=== PATIENT | male | born 1965 | race Caucasian/White ===

== ENCOUNTER 2019-03-04 05:37 | Outpatient (CLI) | payer OTHER ==
[~2019-03-04] VITALS: Ht 187.9 cm; Wt 95.4 kg
[2019-03-04] MEDS ORDERED: PANT40TA3 PO (13:32)
[2019-03-04] MEDS ORDERED: DESV100T PO (13:32)
[2019-03-04] MEDS ORDERED: LORA0.5T PO (13:32)
== END 2019-03-05 09:19 | disposition home or self-care (01) ==
LOC: PREOP 05:37
PROVIDERS: ATTEND Surgery
DX: Z01.818 Encounter for other preprocedural examination (principal)

== ENCOUNTER → 2019-03-09 | Outpatient (CLI) | payer OTHER ==
[~2019-03-09] MED LIST: CATHETER FLUSH 10 ML SYR IV PRN; DESV100T PO; LORA0.5T PO; PANT40TA3 PO
--- NOTE | 2019-03-09 14:14 | Diagnostic Imaging Report ---
HEPATOBILIARY SCAN DATE: March 09, 2019. INDICATION: 53-year-old male, epigastric pain. COMPARISON: None. PROCEDURE: 5.03 mCi of Tc-99m Choletec was administered intravenously and serial anterior planar images over the liver and upper abdomen were obtained. FINDINGS: There is clearance of background activity by the liver indicating hepatocyte function. There is radiotracer excretion in the bile ducts with prompt filling of the gallbladder. There is radiotracer extension into small bowel. There is enterogastric reflux. Ensure was administered for calculation of gallbladder ejection fraction. Gallbladder ejection fraction was calculated to be 35%. IMPRESSION: 1. No evidence of acute cholecystitis. 2. No evidence of complete common bile duct obstruction. 3. Gallbladder ejection fraction measured within normal limits. 4. Enterogastric reflux noted. Dictated by: Dictated on workstation # [id number]
== END ==
LOC: CARD 09:27
PROVIDERS: ATTEND Registered Nurse
DX: K21.9 Gastro-esophageal reflux disease without esophagitis (principal)
CPT/HCPCS: 78227

== ENCOUNTER → 2020-02-26 | Outpatient (CLI) | payer OTHER ==
[~2020-02-26] MED LIST changes: -CATHETER FLUSH 10 ML SYR IV PRN; -PANT40TA3 PO; +PANT40TA52 PO
--- NOTE | 2020-02-26 12:39 | Diagnostic Imaging Report ---
PROCEDURE: MRI lumbar spine. TECHNIQUE: Multiplanar, multisequence MRI of the lumbar spine was performed without contrast. INDICATION: Chronic low back pain. COMPARISON: None. FINDINGS: Minimal retrolisthesis of L3 on L4. Alignment is otherwise normal. Vertebral body heights are preserved. Normal bone marrow signal. No abnormal signal in the conus which terminates at L1. Normal morphology of the cauda equina. The visualized abdominal pelvic contents are unremarkable. L1-L2: Normal. L2-L3: Normal L3-L4: Small annular disc bulge, ligamentous hypertrophy and facet arthropathy result in moderate bilateral lateral recess narrowing. Moderate bilateral neural foraminal narrowing. No spinal canal narrowing. L4-L5: Annular disc bulge, ligamentous hypertrophy and facet arthropathy result in moderate bilateral lateral recess narrowing. No spinal canal narrowing. Moderate bilateral neural foraminal narrowing. L5-S1: Central disc protrusion results in no substantial spinal canal or lateral recess narrowing. Disc space height loss and facet arthropathy result in moderate to severe bilateral neural foraminal narrowing. There are chronic L5 pars defects. IMPRESSION: 1. 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 2. No high-grade spinal canal stenosis. 3. Chronic L5 pars defects without malalignment. Dictated by: Dictated on workstation # [id number]
== END ==
LOC: RAD 10:30
PROVIDERS: ATTEND Nurse Practitioner Family
DX: M47.816 Spondylosis without myelopathy or radiculopathy, lumbar region (principal); M48.07 Spinal stenosis, lumbosacral region; M51.16 Intervertebral disc disorders with radiculopathy, lumbar region
CPT/HCPCS: 72148

== ENCOUNTER → 2020-12-14 | Outpatient (CLI) | payer OTHER ==
[2020-12-14 10:14] VITALS: BP 184/125
--- NOTE | 2020-12-14 13:54 | Cardiology Stress Test Report ---
Stress Test Report Date of Procedure/Referring: Date of Procedure: Dec 14, 2020 PCP Keerthi Doherty Admitting Physician Socrates Lopez MD Indications: HTN Baseline Heart Rate: 68 Baseline Blood Pressure: Blood Pressure Systolic: 184 Blood Pressure Diastolic: 125 Baseline EKG: Baseline EKG: NSR Summary/Conclusion: Summary: In summary, the patient started exercising with a baseline heart rate, blood pressure and EKG mentioned above Patient was able to exercise for a total of 68 minutes on Josh protocol, METs 7 Maximum heart rate 145 Maximum blood pressure 227/107 Stress EKG, Minimal nondiagnostic changes Recovery EKG , Return to baseline Conclusion: 1. Good exercise tolerance for a total of 7 minutes on Josh protocol, 8.5 METs, achieving 88 percent of maximum expected heart rate 2. Minimal nondiagnostic EKG changes with exercise returned to baseline during recovery 3. No arrhythmia was noted HANNAH ECHOLS MD Dec 14, 2020 13:54
== END ==
LOC: CARD 10:00
PROVIDERS: ATTEND Physician Assistant
DX: I11.9 Hypertensive heart disease without heart failure (principal); I34.0 Nonrheumatic mitral (valve) insufficiency; I25.10 Atherosclerotic heart disease of native coronary artery without angina pectoris
CPT/HCPCS: 93017; 93306